=== PATIENT | female | born 1960 | race Caucasian/White ===

== ENCOUNTER 2017-05-09 07:02 | Day surgery (SDC) | payer OTHER ==
[~2017-05-09] VITALS: Ht 175.3 cm; Wt 69.3 kg
[~2017-05-09 07:02] MED LIST: TRAM50TA2 PO
[2017-05-09 07:27] VITALS: Ht 175.3 cm; Wt 69.3 kg
[2017-05-09] MEDS ORDERED: CITALOPRAM (07:34)
[2017-05-09] MEDS ORDERED: PANT40TA3 PO (07:34)
[2017-05-09] MEDS ORDERED: FENTAnyl 50 MCG/ML VIAL ONE (07:39)
[2017-05-09] MEDS ORDERED: PROPOFOL 20 ML ONE (07:39)
[2017-05-09 07:47] VITALS: BP 115/75; PULSE 63; RESP 14
[2017-05-09] MEDS ORDERED: MIDAZOLAM 1 MG/ML 2 ML INJ ONE (09:02)
--- NOTE | 2017-05-09 09:43 | OPPN ---
Date/Time of Note Date/Time of Note DATE: 05/09/17 TIME: 09:40 Proc Note GI Procedure Date 05/09/17 Pre-procedure Diagnosis Diarrhea and abdominal pain Nausea Post-procedure Diagnosis Stomal ulcer Small gastric pouch Gastric bypass surgery Procedure Performed: Endoscopy, Colonoscopy Surgeon see signature line Pastry Assistant none Anesthesia Type: MAC Tourniquet Time none EBL none Transfusion required none Biopsy 1: Gastric biopsy 1 Biopsy 2: 3: Biopsies from the colon Grafts/Implants none Tubes/Drains none Complication(s) none Disposition: PACU Indications: chronic diarrhea, persistent vomiting Operative\Procedure Findings EGD with biopsy 1 Colonoscopy with 3: Biopsy Procedure Description See dictation POLO ARAGON MD May 09, 2017 09:43
[2017-05-09 10:09] VITALS: BP 120/71; RESP 16
--- NOTE | 2017-05-11 08:34 | GILP ---
DATE OF PROCEDURE: INDICATION: A 56-year-old female undergoing this procedure for chronic abdominal pain and nausea an d a colonoscopy for chronic diarrhea. She had a history of Clostridium difficile colitis. The purp ose is to evaluate upper GI tract to rule out stomal ulcer and colonoscopy to rule out IBD or Clostr idium difficile colitis. INFORMED CONSENT: The risk of the procedure, related and unrelated complications, anesthetic risks, alternatives discussed. Informed consent was obtained. DESCRIPTION OF PROCEDURE: The patient was brought to the GI lab, sedated by the anesthesiologist. After optimum sedation, scope was passed with much ease into esophagus which was grossly within norm al limits. Z line was at 40 cm. Stomach mucosa had a small pouch with inflammatory fold always sof t in consistency. There were multiple anastomosed superficial ulcer with the suture material. Ther e was a blind pouch abort 3 inches in the length, and the anastomosis then led to the small intestin e, which was normal up 3 to 4 feet. Biopsy taken from the small pouch of the stomach to rule out H. pylori infection and scope was removed with good patient tolerance. IMPRESSION 1. Normal esophagus. 2. Z line at 40 cm, normal. 3. Small gastric pouch. 4. Gastric bypass surgery. 5. Stomal ulcer. 6. No evidence of sleeve surgery. The plan at this point is to start the patient on PPI, pending H. pylori results. COLONOSCOPY REPORT: The patient was turned around, scope was passed with much ease into rectum and advanced all the way through the unprepared colon into the cecum and finally into terminal ileum. T erminal ileum was normal up to 2 feet. The entire colon was covered with a thin layer of stool, daniel ating material, but 95% visibility was good. Random biopsy obtained to rule out microscopic or kerry agenous colitis. Retroversion done, no growth was seen. Scope was straightened out and removed wit h good patient tolerance. IMPRESSION: 1. Normal finding all the way into cecum. 2. Normal terminal ileum. 3. Preparation was almost inadequate. 4. Random biopsies were obtained to rule out collagenous or microscopic colitis. 5. Clarity was good. 6. Retroversion appeared normal except for collection of liquidy stool occupying 20% of the rectum. PLAN: Review histopathology. The patient needs to be on a high fiber diet. We will follow up with the patient in the office in 2 weeks. Dictated By: POLO ARAGON MD PJ/JOE Conf#: [id number] [facility]#: [id number]
== END 2017-05-09 12:07 | disposition home or self-care (01) ==
LOC: GIL 07:02
PROVIDERS: ATTEND Internal Medicine Gastroenterology
DX: K28.9 Gastrojejunal ulcer, unspecified as acute or chronic, without hemorrhage or perforation (principal); Z98.84 Bariatric surgery status; R11.2 Nausea with vomiting, unspecified; Z80.0 Family history of malignant neoplasm of digestive organs; Z86.19 Personal history of other infectious and parasitic diseases; K52.9 Noninfective gastroenteritis and colitis, unspecified
CPT/HCPCS: 43239; 45380; 88305; 88312; J2250; J3010; Z7610